=== PATIENT | male | born 1960 | race Two or more races ===

== ENCOUNTER 2024-05-21 17:40 | Emergency (ER) | payer SELFPAY ==
[~2024-05-21] VITALS: Ht 152.4 cm; Wt 102.0 kg
--- NOTE | 2024-05-21 18:52 | DVH ---
EXAM: XY CHEST XRAY 1 VIEW CLINICAL HISTORY: FLANK PAIN TECHNIQUE: Single AP view of the chest WID: COMPARISON: None FINDINGS: Lines and tubes: None Chest: The heart size and pulmonary vasculature is within normal limits. No pleural effusion, pneumothorax, or consolidation. The osseous structures are grossly intact. IMPRESSION: No acute cardiopulmonary abnormality.
--- NOTE | 2024-05-21 19:04 | DVH ---
Exam: CT CT AB PEL WO CON-NO ORAL OR IV History: BILATERAL FLANK PAIN Comparison Study: None available at time of dictation. TECHNIQUE: Multidetector CT of the abdomen was performed from lung bases to pubic symphysis. Imaging was performed without IV contrast. Axial, coronal and sagittal multiplanar reformats were obtained fr om the axial data set by the technologist. Radiation Dose Information: CT Dose: CTDI volume is 21.03 mGy. Dose-length product is 1094.34 mGy*cm FINDINGS: Evaluation of solid organs is limited due to lack of intravenous contrast use. Findings: Lung Bases: No acute or significant lung base finding. Normal heart size. No pleural or pericardial effusion. Liver: The liver is normal in size. No focal lesions. Gallbladder and Biliary Tree: Unremarkable Spleen: Unremarkable Pancreas: The pancreas is grossly normal in appearance. Adrenal Glands: Unremarkable Kidneys: Bilateral renal cysts measuring 2.9 cm on the right and 3.6 cm on the left. A 2nd cortical d eformity on the left kidney is noted measuring 14-15 mm which may represent a smaller cyst. There als o bilateral renal calculi which appear confluence suggesting staghorn calculi extending into the cosmo l pelvis bilaterally Bladder: Grossly unremarkable for degree of distention. Bowel: The stomach is grossly normal in appearance. Small bowel and colon are normal in caliber and d istribution. The appendix is not visualized; however, no secondary findings of acute appendicitis id entified. Ascites: Absent Lymphadenopathy: No mesenteric, retroperitoneal or periportal lymphadenopathy. Abdominal Wall and Mesentery: Unremarkable. Vasculature: The visualized abdominal aorta is normal in size and caliber. Evaluation of abdominal a nd pelvic vessels is limited due to lack of intravenous contrast. Pelvic Organs: Prostate appears enlarged measures 6.9 by 6.9 cm correlate with PSA. Musculoskeletal: No aggressive focal bony lesions, acute fractures or dislocation. Degenerative disc changes from L2 through S1. Grade 1 anterior spondylolisthesis L4-5. Soft tissues: Unremarkable IMPRESSION: 1. Bilateral renal cysts 2. Bilateral renal calculi and appear large extending into the renal pelvis most likely staghorn calc ryan. 3. Enlarged prostate measuring 6.9 by 6.9 cm correlate with PSA. 4. Degenerative disc changes L2 through S1 5. Grade 1 anterior spondylolisthesis L4-5. . Radiation optimization: All CT scans at this facility use at least one of these dose optimization dennis hniques: automated exposure control mA and/or kV adjustment per patient size (includes targeted exam s where dose is matched to clinical indication) or iterative reconstruction.
[2024-05-21 19:28] LABS: Basophils # (auto) 0.1 10 ^3/uL (0-0.2); Basophils % (auto) 0.8 % (0.0-2.0); Eosinophils # (auto) 0.4 10 ^3/uL (0-0.8); Eosinophils % (auto) 5.8 % (0.0-7.0); Hemoglobin 15.6 g/dL (13.5-17.5); Lymphocytes # (auto) 2.1 10 ^3/uL (0.4-5.4); Lymphocytes % (auto) 28.5 % (10.0-50.0); Mean Corpuscular Hemoglobin 25.4 pg (28.0-32.0); Mean Corpuscular Hgb Conc. 32.6 g/dL (32.0-36.0); Mean Corpuscular Volume 77.9 fL (80.0-100.0); Monocytes # (auto) 0.7 10 ^3/uL (0-1.3); Neutrophils # (auto) 4.1 10 ^3/uL (1.6-8.6); Neutrophils % (auto) 54.9 % (37.0-80.0); Nucleated Red Blood Cells % 0.2 %; Platelet Count (auto) 301 10^3/uL (140-450); Red Blood Cells 6.15 10^6/uL (4.5-5.90); Red Cell Distribution Width 16.4 % (11.8-14.3); White Blood Cell 7.4 10^3/uL (4.4-10.8)
[2024-05-21 19:40] LABS: INR 1.03 (0.9-1.15); Partial Thromboplastin Time 28.3 SEC (24.5-34.5); Prothrombin Time 10.9 sec (9.3-11.8)
[2024-05-21 19:41] LABS: Urine Bacteria None Seen /hpf (None Seen)
--- NOTE | 2024-05-21 19:42 | ED.PDOC ---
General HPI Comments Poor historian 63-year-old male just arrived from [facility] a week ago and he said that I forgot my blood pressure medication he is supposed to be on blood pressure medication but he has not been taking it for the last seven days. He also has history of enlarged prostate with previous procedures to his prostate. Patient states that he noticed some hematuria intermittently in the last couple of days. Complains of minimal nonspecific flank pain. Denies any other acute symptoms. Patient states he has been [place] enalapril 30 [place] b.i.d. [place] but he does not have the medicine. at 10:20 PM, we were notified by pt family member of the patients following home medications: atorvastatin 20 mg 1x daily, ASA 81 mg daily, allopurinol 100 mg daily, enalapril 5 mg 3x daily, amlodipine 5 mg 2x daily, VITALS: TEMP: 98.8 F HEART RATE; 95 02 SAT; 96% on room air RR; 18 BP: 213/141 PMH: enlarged prostate HTN, arthritis, gout, HLD PSH: kidney stones removal SOCIAL HISTORY: denies tobacco use, denies etoh use, denies drug use MEDS; unknown ALLERGIES; denies REVIEW OF SYSTEMS: CONSTITUTIONAL: Denies acute: fever, diaphoresis, chills, generalized weakness. HEAD: Denies acute: headache, photophobia Eyes: Denies acute: Double vision, vision loss, eye pain, eye discharge. EARS: Denies acute: tinnitus, hearing loss, ear discharge, ear pain, THROAT: Denies acute: sore throat, swelling, difficulty swallowing , pain with swallowing, change in voice. NECK: Denies acute: neck pain, neck swelling, stiff neck. HEART: Denies acute : chest pain, palpitations, LUNGS: Denies acute: SOB, wheezing, cough, hemoptysis ABDOMEN: Denies acute: abdominal pain, Nausea, Vomiting, diarrhea, melena , hematemesis, hematochezia SKIN: Denies acute: rash, redness, lesions, itchiness. EXTREMITIES: Denies acute: calf pain, numbness, tingling, weakness, denies pain in extremity. Denies acute: Low back pain. Neuro: Denies acute: focal neurological deficit, motor or sensory focal neurological deficit, tremors, seizure like activity, confusion, dizziness, change in mental status, loss of bowel or bladder function, cauda equina like symptoms. : Denies acute: dysuria, increase in urinary frequency. PSYCH: Denies acute: hallucination, suicidal ideation, homicidal ideation. PHYSICAL EXAM: General: no acute distress, awake and alert. Head: normocephalic, atraumatic. Neck: supple, trachea is midline, no swelling. Throat: Normal phonation. Eyes:, no erythema, no purulent discharge, no proptosis, no icterus. Heart: regular rate, regular rhythm, no significant murmur appreciated. Lungs: no apparent respiratory distress, Able to speak in full sentences. No wheezing, no rhonchi, no crackles. No stridors Clear to auscultation bilaterally. Abdomen: non tender to palpation, non distended, soft, no guarding, no rebound, + bowel sounds. Neuro: Awake, Alert, oriented to name, self, situation, follows commands GCS=15. Speech is normal. Skin: no petechia, no purpura, no cyanosis, non-pale, not jaundice. Lower extremities: --no - Pitting edema no deformity, no focal swelling, no calf TTP. Makes eye contact. moves all four extremities. Face: no apparent facial droop. No CVA tenderness to percussion bilaterally. Ambulating in the ED independently. Ears: Normal appearing TM b/l, Chief Complaint: Urinary Time Seen by MD: 19:40 Reviewed notes: Nurses Notes, Medications, Allergies Allergies: Coded Allergies: NO KNOWN ALLERGIES (Unverified , 05/21/24) Home Meds Active Scripts Amlodipine Besylate (NORVASC TABLET) 5 Mg Tb, 1 TAB PO DAILY for 10 Days, #10 TAB Prov:PARVEEN BUCKLEY DO 05/21/24 Enalapril Maleate (Enalapril Maleate) 20 Mg Tab, 1 TAB PO BID for 10 Days, #20 TAB 1 Refill Prov:PARVEEN BUCKLEY DO 05/21/24 Tamsulosin Hcl (Flomax) 0.4 Mg Cap, 1 CAP PO DAILY for 10 Days, #10 CAP 11 Refills Prov:PARVEEN BUCKLEY DO 05/21/24 Information Source: Patient, Relative Mode of Arrival: Ambulatory Brought in by: relative Past Medical History PAST MEDICAL HISTORY: Arthritis, HTN, Kidney Stones Past Medical History (Other): BPH Family History Family History: Reviewed,noncontributory to illness Social History Smoker: Non-Smoker Alcohol: Denies ETOH Use Drugs: Denies Drug Use Lives In: Home Was a procedure done? Was a procedure done?: No Differential Diagnosis Kidney stone (Female): N/A Kidney stone (Male): Other (Flank Pain;DDX include Nephrolethiasis, obstructive uropathy, kidney cancer, renal infarct, intraabdominal neoplasm, lower lobe pneumonia, retroperitoneal hemorrhage, pancreatitis, aneurysm, dissection, musculoskeletal, rib contusion/trauma, hematoma, PYLONEPHRITIS, muscle strain, spinal disease. IN A FEMALE) Urinary Problem (Male): Other (Hematuria:Ddx includes but not limited to: stones, coagulopathy, bladder/kidney cancer, SLE, infection, pylonephritis, prostatitis, cystitis, urethritis, renal infarct, Goodpasture syndrome, Wegners granulomatosis, Henoch-schnolin purpura, Hemolytic Uremic Syndrome HUS. Rhabdomyolysis. ) Other Differential Diagnosis DDX include renal disease, thyroid disease, electrolyte abnormality, increased salt intake, medications non-compliance, undiagnosed HTN, Hypertensive crisis, hypertensive urgency., drug toxicity. X-Ray, Labs, Meds, VS Vital Signs Date Time Temp Pulse Resp B/P (MAP) Pulse Ox O2 Delivery O2 Flow Rate FiO2 05/21/24 22:56 138/94 (109) 05/21/24 22:47 180/106 05/21/24 22:36 89 16 180/106 (130) 97 05/21/24 22:10 187/114 05/21/24 22:05 187/114 05/21/24 22:01 86 16 187/114 (138) 98 05/21/24 21:32 94 157/115 05/21/24 21:23 157/115 05/21/24 21:06 91 20 96 Room Air 05/21/24 21:05 98.6 91 20 200/118 (145) 96 98.6 05/21/24 20:29 184/128 05/21/24 20:08 98.6 94 16 184/128 (146) 96 98.6 05/21/24 18:04 98.8 95 18 203/109 (140) 96 Lab Test 05/21/24 19:24 05/21/24 19:02 Range/Units Urine Color Light-orange Yellow Urine Clarity Turbid H Clear Urine pH 6.0 5.0-9.0 Urine Specific [place] 1.021 1.001-1.035 Urine Protein 2+ H Negative Urine Ketones Negative Negative Urine Blood 3+ H Negative /uL Urine Nitrite Negative Negative Urine Bilirubin Negative Negative Urine Urobilinogen Normal Negative mg/dL Urine Leukocyte Esterase 3+ Negative /uL Urine RBC 1852 0 - 3 /hpf Urine WBC 249 0 - 3 /hpf Urine Squamous Epithelial Cells None seen <5 /hpf Urine Bacteria None seen None Seen /hpf Urine Mucus Few None Seen Urine Glucose Normal Normal mg/dL White Blood Count 7.4 4.4-10.8 10^3/uL Red Blood Count 6.15 H 4.5-5.90 10^6/uL Hemoglobin 15.6 13.5-17.5 g/dL Hematocrit 48.0 41.0-53.0 % Mean Corpuscular Volume 77.9 L 80.0-100.0 fL Mean Corpuscular Hemoglobin 25.4 L 28.0-32.0 pg Mean Corpuscular Hemoglobin Concent 32.6 32.0-36.0 g/dL Red Cell Distribution Width 16.4 H 11.8-14.3 % Platelet Count 301 140-450 10^3/uL Mean Platelet Volume 7.0 6.9-10.8 fL Neutrophils (%) (Auto) 54.9 37.0-80.0 % Lymphocytes (%) (Auto) 28.5 10.0-50.0 % Monocytes (%) (Auto) 10.0 0.0-12.0 % Eosinophils (%) (Auto) 5.8 0.0-7.0 % Basophils (%) (Auto) 0.8 0.0-2.0 % Neutrophils # (Auto) 4.1 1.6-8.6 10 ^3/uL Lymphocytes # (Auto) 2.1 0.4-5.4 10 ^3/uL Monocytes # (Auto) 0.7 0-1.3 10 ^3/uL Eosinophils # (Auto) 0.4 0-0.8 10 ^3/uL Basophils # (Auto) 0.1 0-0.2 10 ^3/uL Nucleated Red Blood Cells 0.2 % Prothrombin Time 10.9 9.3-11.8 sec Prothrombin Time INR 1.03 0.9-1.15 Activated Partial Thromboplast Time 28.3 24.5-34.5 SEC Sodium Level 142 136-145 mmol/L Potassium Level 3.6 3.5-5.1 mmol/L Chloride Level 108 H 98-107 mmol/L Carbon Dioxide Level 24 20-31 mmol/L Anion Gap 10 5-15 Blood Urea Nitrogen 16 9-23 mg/dL Creatinine 1.24 0.700-1.30 mg/dL Glomerular Filtration Rate Calc 66 >90 mL/min BUN/Creatinine Ratio 12.9 10.0-20.0 Serum Glucose 108 H 74-106 mg/dL Calcium Level 9.5 8.7-10.4 mg/dL Total Bilirubin 0.6 0.2-1.0 mg/dL Aspartate Amino Transferase (AST) 19 13-40 U/L Alanine Aminotransferase (ALT) 17 7-40 U/L Alkaline Phosphatase 71 46-116 U/L Total Protein 7.4 5.7-8.2 g/dL Albumin 4.1 3.2-4.8 g/dL Current Medications Medications (Trade) Dose Ordered Sig/Amalia Route Start Time Stop Time Status Last Admin Nitroglycerin (Ntrostat Sublingual) 0.4 mg ONCE ONCE SL 05/21/24 18:15 05/21/24 18:18 DC 05/21/24 20:29 Sodium Chloride 1,000 ml @ 1,000 mls/hr Q1H ONCE IV 05/21/24 19:45 05/21/24 20:44 DC 05/21/24 19:45 Labetalol HCl (Labetalol HCl) 5 mg ONCE ONCE IV 05/21/24 21:30 05/21/24 21:31 DC 05/21/24 21:32 Enalapril Maleate (Vasotec Tablet) 20 mg ONCE ONCE PO 05/21/24 22:00 05/21/24 22:01 DC 05/21/24 22:05 Hydralazine HCl (Apresoline Injection) 5 mg ONCE ONCE IV 05/21/24 22:15 05/21/24 22:16 DC 05/21/24 22:10 Amlodipine Besylate (Norvasc Tablet) 5 mg ONCE ONCE PO 05/21/24 22:30 05/21/24 22:32 DC 05/21/24 22:[address] [address] Ph: [phone] DIAGNOSTIC IMAGING Diagnostic Imaging Report : [id number] Signed PATIENT: SADIQ STANLEY ACCT: [id number] UNIT: [id number] : 1960 LOC: ER ROOM / BED: / AGE / SEX: 63 / M ADM STATUS: REG ER SERVICE 10 ORDERING PHYSICIAN: PARVEEN BUCKLEY DO PROCEDURE(s): CXR1 - CHEST XRAY 1 VIEW REASON: FLANK PAIN ORDER NUMBER(s): [id number], ACCESSION NUMBER(s): [id number] EXAM: XY CHEST XRAY 1 VIEW CLINICAL HISTORY: FLANK PAIN TECHNIQUE: Single AP view of the chest WID: COMPARISON: None FINDINGS: Lines and tubes: None Chest: The heart size and pulmonary vasculature is within normal limits. No pleural effusion, pneumothorax, or consolidation. The osseous structures are grossly intact. IMPRESSION: No acute cardiopulmonary abnormality. ATED BY: GABRIELA FOX MD DICTATED DATE/TIME: 05/21/241848 SIGNED BY: GABRIELA FOX MD SIGNED DATE/TIME: 05/21/241848 CC: [address] [address] Ph: [phone] DIAGNOSTIC IMAGING Diagnostic Imaging Report : [id number] Signed PATIENT: SADIQ STANLEY ACCT: [id number] UNIT: [id number] : 1960 LOC: ER ROOM / BED: / AGE / SEX: 63 / M ADM STATUS: REG ER SERVICE 10 ORDERING PHYSICIAN: PARVEEN BUCKLEY DO PROCEDURE(s): ABPL - CT AB PEL WO CON-NO ORAL OR IV REASON: BILATERAL FLANK PAIN ORDER NUMBER(s): [id number], ACCESSION NUMBER(s): [id number] Exam: CT CT AB PEL WO CON-NO ORAL OR IV History: BILATERAL FLANK PAIN Comparison Study: None available at time of dictation. TECHNIQUE: Multidetector CT of the abdomen was performed from lung bases to pubic symphysis. Imaging was performed without IV contrast. Axial, coronal and sagittal multiplanar reformats were obtained from the axial data set by the technologist. Radiation Dose Information: CT Dose: CTDI volume is 21.03 mGy. Dose-length product is 1094.34 mGy*cm FINDINGS: Evaluation of solid organs is limited due to lack of intravenous contrast use. Findings: Lung Bases: No acute or significant lung base finding. Normal heart size. No pleural or pericardial effusion. Liver: The liver is normal in size. No focal lesions. Gallbladder and Biliary Tree: Unremarkable Spleen: Unremarkable Pancreas: The pancreas is grossly normal in appearance. Adrenal Glands: Unremarkable Kidneys: Bilateral renal cysts measuring 2.9 cm on the right and 3.6 cm on the left. A 2nd cortical deformity on the left kidney is noted measuring 14-15 mm which may represent a smaller cyst. There also bilateral renal calculi which appear confluence suggesting staghorn calculi extending into the renal pelvis bilaterally Bladder: Grossly unremarkable for degree of distention. Bowel: The stomach is grossly normal in appearance. Small bowel and colon are normal in caliber and distribution. The appendix is not visualized; however, no secondary findings of acute appendicitis identified. Ascites: Absent Lymphadenopathy: No mesenteric, retroperitoneal or periportal lymphadenopathy. Abdominal Wall and Mesentery: Unremarkable. Vasculature: The visualized abdominal aorta is normal in size and caliber. Evaluation of abdominal and pelvic vessels is limited due to lack of intravenous contrast. Pelvic Organs: Prostate appears enlarged measures 6.9 by 6.9 cm correlate with PSA. Musculoskeletal: No aggressive focal bony lesions, acute fractures or dislocation. Degenerative disc changes from L2 through S1. Grade 1 anterior spondylolisthesis L4-5. Soft tissues: Unremarkable IMPRESSION: 1. Bilateral renal cysts 2. Bilateral renal calculi and appear large extending into the renal pelvis most likely staghorn calculi. 3. Enlarged prostate measuring 6.9 by 6.9 cm correlate with PSA. 4. Degenerative disc changes L2 through S1 5. Grade 1 anterior spondylolisthesis L4-5. . Radiation optimization: All CT scans at this facility use at least one of these dose optimization techniques: automated exposure control mA and/or kV adjustment per patient size (includes targeted exams where dose is matched to clinical indication) or iterative reconstruction. ATED BY: RYLAND DOMÍNGUEZ Jr. DO DICTATED DATE/TIME: 05/21/241901 SIGNED BY: RYLAND DOMÍNGUEZ Jr., DO SIGNED DATE/TIME: 05/21/241901 CC: Time of 1ST Reevaluation: 23:08 Reevaluation 1ST: Improved Patient Education/Counseling: Diagnosis, Treatment Family Education/Counseling: Diagnosis, Treatment Comments Patient presented with the above HPI.--flank pain/hypertension/hematuria the---workup was initiated. patient was found with the above mentioned d iagnosis. Patient was given: Labetalol IV, hydralazine, nitroglycerin sublingual, fluids, amlodipine 5 mg p.o., enalapril 20 mg p.o.. Patient ED course and VS have been stabilized. Patient has been reassessed in the ED and remained in a stable condition. Pertinent incidental findings were discussed with the patient and/or family. Patient/family voices understanding and is agreeable with plan. Patient has been observed in the ED adequate length of time to insure improvement/stability. patient was discharged home in a stable condition. I gave prescription of his home medications until he follows up with the PCP. All the reports of any imaging studies that were ordered by myself were reviewed by myself. Departure 1 Departure Time of Disposition: 20:34 Impression: Primary Impression: Enlarged prostate Additional Impressions: Hematuria Flank pain Hypertension Kidney stones Patient's other noncompliance with medication regimen for other reason Disposition: 01 HOME / SELF CARE / HOMELESS Condition: Stable Additional Instructions: Additional discharge instructions: You MUST follow-up with your primary care/family doctor in 1 to 2 days. If you are unable to see your primary care/family doctor, please return to our emergency room for re-assessment and re-evaluation in 1 to 2 days. Return to the emergency room here in our facility or to the nearest ER [facility] if your symptoms change or worsen. CONSULTATIONS: you MUST Follow-up for consultation as soon as possible with: -urology in 1-2 days. Please call for appointment You MUST call the consultants office yourself to make an appointment. You may need to arrange that through your insurance and/or your primary/family doctor. If you are unable to see the it support consultant in 1 to 2 days, you must return to our emergency room (or any other ER of your choice) for re-assessment and re- evaluation. Adequate fluid hydration. Monitor blood pressure at home at least 3 times a day. Below is a copy of your radiological report for follow up: [address] [address] Ph: [phone] DIAGNOSTIC IMAGING Diagnostic Imaging Report : [id number] Signed PATIENT: SADIQ STANLEY ACCT: [id number] UNIT: [id number] : 1960 LOC: ER ROOM / BED: / AGE / SEX: 63 / M ADM STATUS: REG ER SERVICE 10 ORDERING PHYSICIAN: PARVEEN BUCKLEY DO PROCEDURE(s): ABPL - CT AB PEL WO CON-NO ORAL OR IV REASON: BILATERAL FLANK PAIN ORDER NUMBER(s): [id number], ACCESSION NUMBER(s): [id number] Exam: CT CT AB PEL WO CON-NO ORAL OR IV History: BILATERAL FLANK PAIN Comparison Study: None available at time of dictation. TECHNIQUE: Multidetector CT of the abdomen was performed from lung bases to pubic symphysis. Imaging was performed without IV contrast. Axial, coronal and sagittal multiplanar reformats were obtained from the axial data set by the technologist. Radiation Dose Information: CT Dose: CTDI volume is 21.03 mGy. Dose-length product is 1094.34 mGy*cm FINDINGS: Evaluation of solid organs is limited due to lack of intravenous contrast use. Findings: Lung Bases: No acute or significant lung base finding. Normal heart size. No pleural or pericardial effusion. Liver: The liver is normal in size. No focal lesions. Gallbladder and Biliary Tree: Unremarkable Spleen: Unremarkable Pancreas: The pancreas is grossly normal in appearance. Adrenal Glands: Unremarkable Kidneys: Bilateral renal cysts measuring 2.9 cm on the right and 3.6 cm on the left. A 2nd cortical deformity on the left kidney is noted measuring 14-15 mm which may represent a smaller cyst. There also bilateral renal calculi which appear confluence suggesting staghorn calculi extending into the renal pelvis bilaterally Bladder: Grossly unremarkable for degree of distention. Bowel: The stomach is grossly normal in appearance. Small bowel and colon are normal in caliber and distribution. The appendix is not visualized; however, no secondary findings of acute appendicitis identified. Ascites: Absent Lymphadenopathy: No mesenteric, retroperitoneal or periportal lymphadenopathy. Abdominal Wall and Mesentery: Unremarkable. Vasculature: The visualized abdominal aorta is normal in size and caliber. Evaluation of abdominal and pelvic vessels is limited due to lack of intravenous contrast. Pelvic Organs: Prostate appears enlarged measures 6.9 by 6.9 cm correlate with PSA. Musculoskeletal: No aggressive focal bony lesions, acute fractures or dislocation. Degenerative disc changes from L2 through S1. Grade 1 anterior spondylolisthesis L4-5. Soft tissues: Unremarkable IMPRESSION: 1. Bilateral renal cysts 2. Bilateral renal calculi and appear large extending into the renal pelvis most likely staghorn calculi. 3. Enlarged prostate measuring 6.9 by 6.9 cm correlate with PSA. 4. Degenerative disc changes L2 through S1 5. Grade 1 anterior spondylolisthesis L4-5. . Radiation optimization: All CT scans at this facility use at least one of these dose optimization techniques: automated exposure control mA and/or kV adjustment per patient size (includes targeted exams where dose is matched to clinical indication) or iterative reconstruction. ATED BY: RYLAND DOMÍNGUEZ Jr., DO DICTATED DATE/TIME: 05/21/241901 SIGNED BY: RYLAND DOMÍNGUEZ Jr., DO SIGNED DATE/TIME: 05/21/241901 CC: [place] [address] Ph: [phone] DIAGNOSTIC IMAGING Diagnostic Imaging Report : [id number] Signed PATIENT: SADIQ STANLEY ACCT: [id number] UNIT: [id number] : 1960 LOC: ER ROOM / BED: / AGE / SEX: 63 / M ADM STATUS: REG ER SERVICE 10 ORDERING PHYSICIAN: PARVEEN BUCKLEY DO PROCEDURE(s): CXR1 - CHEST XRAY 1 VIEW REASON: FLANK PAIN ORDER NUMBER(s): [id number], ACCESSION NUMBER(s): [id number] EXAM: XY CHEST XRAY 1 VIEW CLINICAL HISTORY: FLANK PAIN TECHNIQUE: Single AP view of the chest WID: COMPARISON: None FINDINGS: Lines and tubes: None Chest: The heart size and pulmonary vasculature is within normal limits. No pleural effusion, pneumothorax, or consolidation. The osseous structures are grossly intact. IMPRESSION: No acute cardiopulmonary abnormality. ATED BY: GABRIELA FOX MD DICTATED DATE/TIME: 05/21/241848 SIGNED BY: GABRIELA FOX MD SIGNED DATE/TIME: 05/21/241848 CC: e-Prescriptions Amlodipine Besylate (NORVASC TABLET) 5 Mg Tb 1 TAB PO DAILY for 10 Days, #10 TAB Prov: PARVEEN BUCKLEY DO 05/21/24 Enalapril Maleate (Enalapril Maleate) 20 Mg Tab 1 TAB PO BID for 10 Days, #20 TAB 1 Refill Prov: PARVEEN BUCKLEY DO 05/21/24 Tamsulosin Hcl (Flomax) 0.4 Mg Cap 1 CAP PO DAILY for 10 Days, #10 CAP 11 Refills Prov: PARVEEN BUCKLEY DO 05/21/24 Discharged With: Self, Relative Critical Care Note Critical Care Time?: Yes (55 min-critical care time only) I personally scribed for PARVEEN BUCKLEY DO ([email or web address]) on 05/21/24 at 19:42. Electronically submitted by Fransisco Tam ([facility] I personally scribed for PARVEEN BUCKLEY DO ([email or web address]) on 05/21/24 at 21:42. Electronically submitted by Fransisco Tam ([facility] I personally scribed for PARVEEN BUCKLEY DO ([email or web address]) on 05/21/24 at 21:59. Electronically submitted by Fransisco Tam ([facility]). I personally scribed for PARVEEN BUCKLEY DO ([email or web address]) on 05/21/24 at 22:24. Electronically submitted by Fransisco Tam ([facility] PARVEEN BUCKLEY DO May 21, 2024 19:42
[2024-05-21] MEDS: SODIUM CHLORIDE 0.9% 1,000 ML IV ONE (19:45)
[2024-05-21 19:55] LABS: Alanine Aminotransferase 17 U/L (7-40); Alkaline Phosphatase 71 U/L (46-116); Anion Gap 10 (5-15); Aspartate Aminotransferase 19 U/L (13-40); BUN/Creatinine Ratio 12.9 (10.0-20.0); Blood Urea Nitrogen 16 mg/dL (9-23); Calcium 9.5 mg/dL (8.7-10.4); Carbon Dioxide 24 mmol/L (20-31); Chloride 108 mmol/L (98-107); Glucose 108 mg/dL (74-106); Potassium 3.6 mmol/L (3.5-5.1); Sodium 142 mmol/L (136-145)
[2024-05-21 19:56] LABS: Albumin 4.1 g/dL (3.2-4.8); Bilirubin, Total 0.6 mg/dL (0.2-1.0); Total Protein 7.4 g/dL (5.7-8.2)
[2024-05-21 20:15] LABS: Urine Blood 3+ /uL (Negative); Urine Clarity Turbid (Clear); Urine Color Light-Orange (Yellow); Urine Mucus FEW (None Seen); Urine Protein, UAD 2+ (Negative); Urine Specific Gravity 1.021 (1.001-1.035); Urine Urobilinogen Normal (Negative); Urine WBC 249 /hpf (0 - 3)
[2024-05-21] MEDS: NITROGLYCERIN 0.4 MG SL TAB SL ONE (20:29)
[2024-05-21 21:05] VITALS: TEMP 98.6
[2024-05-21] MEDS: LABETALOL HCL 20 MG/4 ML VL IV ONE (21:32)
[2024-05-21] MEDS ORDERED: TAMS-35 PO (21:53)
[2024-05-21] MEDS ORDERED: ENAL1TAB48 PO (21:53)
[2024-05-21] MEDS: ENALAPRIL MALEATE 10 MG TAB PO ONE (22:05)
[2024-05-21] MEDS: hydrALAZINE HCL 20 MG/ML VL IV ONE (22:10)
[2024-05-21] MEDS ORDERED: AML5T PO (22:28)
[2024-05-21 22:36] VITALS: PULSE 89; RESP 16; O2SAT 97
[2024-05-21] MEDS: amLODIPine BESYLATE 5 MG TAB PO ONE (22:47)
[2024-05-21 22:56] VITALS: BP 138/94
== END 2024-05-21 23:18 | disposition home or self-care (01) ==
LOC: ER 17:40 → EEVIPCON 17:40 → ER 23:18
DX: N40.0 Benign prostatic hyperplasia without lower urinary tract symptoms (principal); N20.0 Calculus of kidney; R31.9 Hematuria, unspecified; R10.9 Unspecified abdominal pain; I10 Essential (primary) hypertension
CPT/HCPCS: 36415; 71045; 74176; 80053; 81001; 85025; 85610; 85730; 96361; 96374; 96375; 99285; J0360; J7030